=== PATIENT | female | born 1970 | race Two or more races ===

== ENCOUNTER 2017-02-09 05:51 | Day surgery (SDC) | payer OTHER ==
--- NOTE | 2017-02-08 17:56 | GHP ---
[f rep st] HISTORY AND PHYSICAL Corrected report CHIEF COMPLAINT: Left inguinal hernia. PRESENT ILLNESS: A 46-year-old [place] female with a bulge in the left groin. There is nothing on the right. ALLERGIES: None. CURRENT MEDICATIONS: None other than iron. PAST SURGICAL HISTORY: Cataracts. REVIEW OF SYSTEMS: No asthma, heart trouble, diabetes, epilepsy, rheumatic fever. SOCIAL HISTORY: Nonsmoker. Alcohol use none. 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 PHYSICAL EXAM: HEENT: Within normal limits. LUNGS: Clear. HEART: Normal S1 , S2 without murmur. ABDOMEN: Soft, benign other than a reducible left inguinal hernia. EXTREMITIES: Unremarkable. NEUROLOGIC: Unremarkable. ASSESSMENT: Symptomatic left inguinal hernia. PLAN: Left inguinal hernia repair. Risks of recurrence, infection, bleeding, postoperative discomfort, and numbness below the incision were explained to the patient. She wants to proceed. /[id number]/MODL Cierra worktype, 02/08/17, inga JONAS
[2017-02-09] MEDS ORDERED: LIDOCAINE 1% 2 ML INJ ID PRN (06:09)
[2017-02-09] MEDS ORDERED: LR 1,000 ML IV ONE (06:09)
[2017-02-09] MEDS ORDERED: LIDOCAINE 1% 300 MG/30 ML SDV ONE (06:57)
[2017-02-09] MEDS ORDERED: BUPIVACAINE 0.5% 30 ML SDV ONE (06:58)
--- NOTE | 2017-02-09 07:02 | PDHPUP ---
History & Physical Update H&P update statement: This history and physical update is based on an assessment of the patient which was completed after admission or registration (within 24 hours), but prior to the surgery/procedure.
[2017-02-09] MEDS ORDERED: ceFAZolin 2 GM/DEXTROSE 100 ML IV ONE (07:03)
[2017-02-09] MEDS ORDERED: MIDAZOLAM 2 MG/2 ML VIAL IVP ONE (07:04)
--- NOTE | 2017-02-09 07:05 | PDANEPAE ---
ANE Past Medical History - Cardiovascular History Hx Hypertension: No Hx Arrhythmias: No Hx Chest Pain: No Hx Coronary Artery / Peripheral Vascular Disease: No Hx CHF / Valvular Disease: No Hx Palpitations: No - Pulmonary History Hx COPD: No Hx Asthma/Reactive Airway Disease: No Hx Recent Upper Respiratory Infection: No Hx Oxygen in Use at Home: No Hx Sleep Apnea: No Sleep Apnea Screening Result - Last Documented: Negative - Neurologic History Hx Cerebrovascular Accident: No Hx Seizures: No Hx Dementia: No - Endocrine History Hx Diabetes: No Hypothyroid: No Hyperthyroid: No Obesity: no - Renal History Hx Renal Disorders: No - Liver History Hx Hepatic Disorders: No - Neurological & Psychiatric Hx Hx Neurological and Psychiatric Disorders: No - Cancer History Hx Cancer: No - Congenital Disorder History Hx Congenital Disorders: No - GI History Hx Gastrointestinal Disorders: Yes Gastrointestinal History Comment: occ mild stomach pain - Other Health History Other Health History: L inguinal hernia - Chronic Pain History Chronic Pain: No - Surgical History Prior Surgeries: cataract extraction w/IOL implant-R. T.L. ELZBIETA Review of Systems Review of Systems: - Exercise capacity METS (RN): 4 METS ANE Patient History - Allergies Allergies/Adverse Reactions: No Known Allergies Allergy (Verified 02/08/17 15:10) - Home Medications Home Medications: NK [No Known Home Meds] 02/08/17 [Last Taken Unknown] - NPO status NPO Since - Liquids (Date): 02/08/17 NPO Since - Liquids (Time): 21:00 NPO Since - Solids (Date): 02/08/17 NPO Since - Solids (Time): 18:00 - Smoking Hx Smoking Status: Never smoked ELZBIETA Labs/Vital Signs - Vital Signs Blood Pressure: 103/64 Heart Rate: 57 Respiratory Rate: 18 O2 Sat (%): 99 Height: 132.08 cm Weight: 51.256 kg ANE Physical Exam - Airway Neck exam: FROM Mallampati Score: Class 1 Mouth exam: normal dental/mouth exam - Pulmonary Pulmonary: no respiratory distress - Cardiovascular Cardiovascular: regular rate and rhythym - ASA Status ASA Status: I ANE Anesthesia Plan Anesthesia Plan: GA w LMA
[2017-02-09] MEDS ORDERED: PROPOFOL 200 MG/20 ML VIAL ONE ×2 (07:14→08:25)
[2017-02-09] MEDS ORDERED: fentaNYL 100 MCG/2 ML INJ ONE (07:14)
[2017-02-09] MEDS ORDERED: LIDOCAINE 2% 5 ML SDV ONE (07:17)
[2017-02-09] MEDS ORDERED: ceFAZolin 2 GM/SWFI 2 GM/20 ML SYR IVP ONE (07:30)
[2017-02-09] MEDS ORDERED: ONDANSETRON 4 MG/2 ML VIAL ONE (08:25)
[2017-02-09] MEDS ORDERED: DEXAMETHASONE 4 MG/ML VIAL ONE (08:25)
[2017-02-09] MEDS ORDERED: KETOROLAC 30 MG/1 ML SDV ONE (08:25)
[2017-02-09] MEDS ORDERED: HYDROCODONE/APAP 5/325 TAB PO PRN (08:30)
[2017-02-09] MEDS ORDERED: fentaNYL 100 MCG/2 ML INJ IVP PRN (08:30)
[2017-02-09] MEDS ORDERED: LR 500 ML IV PRN (08:30)
[2017-02-09] MEDS ORDERED: PROMETHAZINE HCL 25 MG/ML INJ IVP PRN (08:30)
[2017-02-09] MEDS ORDERED: NALOXONE HCL 0.4 MG/ML INJ IVP PRN (08:30)
--- NOTE | 2017-02-09 08:48 | POSTOPPROG ---
Post Op Note Date of Operation: 02/09/17 Surgeon: Noe Israel Anesthesia: LMA Pre-op Diagnosis: lih Post-op Diagnosis: same Indication: sane Procedure: ih repair with mesh Findings: direct lih Inf/Abcess present in the surg proc area at time of surgery?: No
--- NOTE | 2017-02-09 08:54 | POSTANESTH ---
Post Anesthetic Evaluation Cardiovascular Status: Normal, Stable Respiratory Status: Normal, Stable Level of Consciousness/Mental Status: Can Participate in Eval Pain Control: Adequate, Prn Tx Ordered Nausea/Vomiting Control: Adequate, Prn Tx Ordered Complications Possibly Related to Anesthesia: None Noted
--- NOTE | 2017-02-09 09:09 | GOP ---
[f rep st] OPERATIVE REPORT DATE OF OPERATION: SURGEON: Noe Israel MD PREOPERATIVE DIAGNOSIS: Left inguinal hernia. POSTOPERATIVE DIAGNOSIS: Left inguinal hernia. PROCEDURE PERFORMED: Repair, direct inguinal hernia with Marlex mesh. FINDINGS: INDICATIONS: Patient with a symptomatic bulge in left groin. DESCRIPTION OF PROCEDURE: General anesthetic. The abdomen scrubbed with ChloraPrep, draped in usual sterile fashion. An oblique incision was made above and parallel to the inguinal ligament after inf iltrating the area with Marcaine mixed with lidocaine. The external oblique was identified, infiltra richy, and opened. The round ligament was transected and ligated. A direct defect was found. The tra nsversalis fascia was imbricated over this, sewn to the shelving edge of the inguinal ligament with 2 -0 Vicryl, just to hide the bulge, after which a sheet of Bard mesh was placed over the inguinal floo r, sewn in place with interrupted 2-0 Vicryl, overlapping the pubic tubercle by a centimeter. After the patch was sewn in place, completing the tension-free Janina repair, the external oblique wa s closed with 3-0 Vicryl, care taken to avoid the ilioinguinal nerve. The Roger fascia was closed w ith 3-0 Vicryl, and skin with 4-0 V-loc and Dermabond. /[id number]/MODL
[2017-02-09 09:48] VITALS: RESP 12; TEMP 97.5
[2017-02-09 10:22] VITALS: BP 124/68; PULSE 68; O2SAT 99
== END 2017-02-09 10:15 | disposition home or self-care (01) ==
LOC: FSGY 05:51
PROVIDERS: ATTEND Surgery
PROC: 0YU60JZ Supplement Left Inguinal Region with Synthetic Substitute, Open Approach (ICD-10-PCS; principal; 2017-02-09 07:15)
DX: K40.90 Unilateral inguinal hernia, without obstruction or gangrene, not specified as recurrent (principal)
CPT/HCPCS: C1781; J0171; J0690; J1100; J1885; J2250; J2405; J2704; J3010